=== PATIENT | female | born 1980 ===

== ENCOUNTER 2018-06-23 02:12 | Emergency (ER) | payer MEDICAID ==
[2018-06-23 02:12] VITALS: BMI 22.6
[2018-06-23 02:54] LABS: SQUAMOUS EPITHIAL 2 /hpf (0-5); URINE BACTERIA OCC (<OCC); URINE BILIRUBIN NEGATIVE (NEGATIVE); URINE CLARITY Hazy (Clear); URINE COLOR Straw (YELLOW); URINE GLUCOSE (UA) NORMAL (Normal); URINE LEUKOCYTE ESTERASE 3+ Leu/uL (Negative); URINE PROTEIN 1+ mg/dL (NEGATIVE); URINE UROBILINOGEN NORMAL mg/dL (0.2-1.0); WBC CLUMPS FEW /hpf
[2018-06-23 02:55] LABS: URINE BLOOD NEGATIVE (NEGATIVE)
[2018-06-23 03:58] LABS: BASO % 0.4 % (0.0-2.0); EOS # 0.1 K/uL (0.0-0.7); EOS % 0.7 % (0.0-4.0); HEMOGLOBIN 11.6 g/dL (11.0-16.0); LYMPH # 2.7 K/uL (1.0-4.3); LYMPH % 28.2 % (20.0-40.0); MEAN CELL VOLUME 92.1 fL (81.0-99.0); MEAN CORPUSCULAR HEMOGLOBIN 31.8 pg (27.0-31.0); MEAN CORPUSCULAR HGB CONC 34.6 g/dL (33.0-37.0); MEAN PLATELET VOLUME 8.1 fL (7.2-11.7); MONO # 0.5 K/uL (0.0-0.8); MONO % 5.3 % (0.0-10.0); NEUT # 6.1 K/uL (1.8-7.0); NEUT % 65.4 % (50.0-75.0); NRBC % 0.1 % (0.0-2.0); RBC 3.65 Mil/uL (3.80-5.20); RED CELL DISTRIBUTION WIDTH 13.9 % (11.5-14.5); WHITE BLOOD COUNT 9.4 K/uL (4.8-10.8)
[2018-06-23 04:00] LABS: ALB/GLOB RATIO 1.4 (1.0-2.1); ALBUMIN 4.2 g/dL (3.5-5.0); ALT/SGPT 40 U/L (9-52); AST/SGOT 36 U/L (14-36); BLOOD UREA NITROGEN 10 mg/dL (7-17); CALCIUM 9.3 mg/dl (8.6-10.4); GFR AFRICAN-AMERICAN > 60; GFR NON-AFRICAN AMERICAN > 60; LIPASE 74 U/L (23-300)
[2018-06-23 04:44] VITALS: TEMP 98.2
--- NOTE | 2018-06-23 05:13 | C.PDOC ---
History Of Present Illness 37 year old female presents to the ED c/o crampy right side flank pain radiating into her right groin. Patient has prior history of back pain with multiple visits. Patient denies history of renal colic. Patient denies fever, chills, nausea, vomit, diarrhea, dysuria, hematuria, weakness, numbness. "Normal" diet based on Rice and beans, tortilla, cheese, meat. minimal exercise and PO fluids Time Seen by Provider: 06/23/18 02:31 Chief Complaint (Nursing): Back Pain History Per: Patient History/Exam Limitations: no limitations Onset/Duration Of Symptoms: Days Current Symptoms Are (Timing): Still Present Quality Of Discomfort: "Pain" Previous Symptoms: Back Pain Associated Symptoms: None Recent travel outside of the [place]: No Additional History Per: Patient Past Medical History Reviewed: Historical Data, Nursing Documentation, Vital Signs Vital Signs: Last Vital Signs Temp 98.2 F 06/23/18 04:43 Pulse 62 06/23/18 04:43 Resp 20 06/23/18 04:43 BP 133/88 06/23/18 04:43 Pulse Ox 99 06/23/18 06:31 - Medical History PMH: No Chronic Diseases Denies: Chronic Kidney Disease Surgical History: No Surg Hx Family History: States: Unknown Family Hx - Social History Hx Tobacco Use: No Hx Alcohol Use: Yes Hx Substance Use: No - Immunization History Hx Tetanus Toxoid Vaccination: No Hx Influenza Vaccination: No Hx Pneumococcal Vaccination: No Review Of Systems Constitutional: Negative for: Fever, Chills Cardiovascular: Negative for: Chest Pain, Palpitations Respiratory: Negative for: Cough, Shortness of Breath Gastrointestinal: Positive for: Abdominal Pain. Negative for: Nausea, Vomiting Genitourinary: Negative for: Dysuria, Hematuria Musculoskeletal: Positive for: Back Pain Skin: Negative for: Rash Physical Exam - Physical Exam Appears: Non-toxic, No Acute Distress Skin: Normal Color, Warm, Dry, No Rash Head: Atraumatic, Normacephalic Eye(s): bilateral: Normal Inspection Oral Mucosa: Moist Neck: Normal ROM, Supple Chest: Symmetrical Cardiovascular: Rhythm Regular Respiratory: Normal Breath Sounds, No Rales, No Rhonchi, No Wheezing Gastrointestinal/Abdominal: Soft, Tenderness (vague RLQ), No Guarding, No Rebound, Other (negative [place] and mcBurneys) Back: Paraspinal Tenderness (palpation lumbar) Extremity: Normal ROM, No Tenderness, No Swelling Neurological/Psych: Oriented x3, Normal Speech Gait: Steady ED Course And Treatment - Laboratory Results Result Diagrams: 06/23/18 03:52 06/23/18 03:52 Lab Interpretation: Abnormal (215 WBC, 3WBC in urine) Urine POC: Negative O2 Sat by Pulse Oximetry: 99 (ON RA) Pulse Ox Interpretation: Normal - CT Scan/US CT abd/pelvis Other Rad Studies (CT/US): Read By Radiologist, Radiology Report Reviewed CT/US Interpretation: IMPRESSION: 1. Mild hydronephrosis and hydroureter on the right. Obstructing calculus not visualized. Correlate. Possibly related to a passed calculus. Subtle inflammation. Pyelonephritis not excluded. Correlate. clinically. 2. No acute intra-abdominal process. No inflammatory process. No obstruction. 3. Mild fatty infiltration of the liver. 4. -The appendix is normal. Thank you for allowing us to participate in the care of your patient. Dictated and Authenticated by: Aki Lewis MD. 06/23/2018 6:26 AM Eastern Time ([place] & [place]) Reevaluation Time: 06:30 Reassessment Condition: Improved Medical Decision Making Medical Decision Making: Impression: abdominal pain Plan: * CT abd/pelvis * Labs * Toradol 60 mg IM * Ultram 50 mg PO * Macrobid 100 mg PO * UA 0630: ddx: passed R renal stone vs constipation (large stool R colon) asymptomatic pyuria in younger patient- defer abx treatment for now. no s/s of Pyelonephritis Disposition Doctor Will See Patient In The: Office Counseled Patient/Family Regarding: Studies Performed, Diagnosis - Disposition Referrals: Myesha Johnston [Primary Care Provider] - Disposition: HOME/ ROUTINE Disposition Time: 06:31 Condition: GOOD Additional Instructions: colico Renal: tao jorge agua Ibuprofeno 400-600 mg cada [address] Scan muestra que PUEDE SER que paso' tom phoebe del rinon del lado derecho Estrenemiento: MUCHO en el lado derecho del colon grueso Tao un purgante ahora- tom botella de Citrato de Magnesio- y re-evalua aguiar molestia del abdomen despues de usar el pastor 2-3 veces repita jacob necessario Cambios de dieta y ejercisio tao mas agua. Instructions: Constipation, Adult (DC), Renal Colic Forms: [email or web address] (Serbian) - Clinical Impression Clinical Impression: Flank pain - Scribe Statement The provider has reviewed the documentation as recorded by the Scribe Sukhdeep Schneider All medical record entries made by the Scribe were at my direction and personally dictated by me. I have reviewed the chart and agree that the record accurately reflects my personal performance of the history, physical exam, medical decision making, and the department course for this patient. I have also personally directed, reviewed, and agree with the discharge instructions and disposition.
--- NOTE | 2018-06-23 05:58 | C.PDOC ---
Time Seen by Provider: 06/23/18 02:31 Chief Complaint (Nursing): Back Pain Past Medical History Vital Signs: Last Vital Signs Temp 98.3 F 06/23/18 02:29 Pulse 96 H 06/23/18 02:29 Resp 20 06/23/18 02:29 BP 153/104 H 06/23/18 02:29 Pulse Ox 98 06/23/18 02:29 - Medical History PMH: Denies: Chronic Kidney Disease Family History: States: Unknown Family Hx - Social History Hx Tobacco Use: No Hx Alcohol Use: Yes Hx Substance Use: No - Immunization History Hx Tetanus Toxoid Vaccination: No Hx Influenza Vaccination: No Hx Pneumococcal Vaccination: No ED Course And Treatment - Laboratory Results Result Diagrams: 06/23/18 03:52 06/23/18 03:52 O2 Sat by Pulse Oximetry: 98 Disposition - Disposition Referrals: Myesha Johnston [Primary Care Provider] -
[2018-06-23] MEDS ORDERED: Magnesium Citrate Oral SOL (300 ml) PO ONE (06:34)
[2018-06-23] MEDS ORDERED: Magnesium Citrate Oral SOL (300 ml) ONE (06:48)
[2018-06-23 06:50] VITALS: BP 120/79; PULSE 67; RESP 18; O2SAT 98
--- NOTE | 2018-06-23 10:34 | CT ---
Date of service: 06/23/2018 PROCEDURE: CT Abdomen and Pelvis without intravenous contrast HISTORY: R flank to groin, sudden, ? renal colic COMPARISON: None. TECHNIQUE: Contiguous images were obtained from the domes of the diaphragms to the upper thighs without the administration of intravenous contrast. Oral contrast was not administered. Radiation dose: Total exam DLP = 412.6 mGy-cm. This CT exam was performed using one or more of the following dose reduction techniques: Automated exposure control, adjustment of the mA and/or kV according to patient size, and/or use of iterative reconstruction technique. FINDINGS: LOWER THORAX: Unremarkable. LIVER: Hepatic steatosis. No gross lesion or ductal dilatation. GALLBLADDER AND BILE DUCTS: Unremarkable. PANCREAS: Unremarkable. No gross lesion or ductal dilatation. SPLEEN: Unremarkable. ADRENALS: Unremarkable. No mass. KIDNEYS AND URETERS: Mild distention of the right renal collecting system and ureter. No hydronephrosis. No solid mass. VASCULATURE: Unremarkable. No aortic aneurysm. BOWEL: Unremarkable. No obstruction. No gross mural thickening. APPENDIX: Unremarkable. Normal appendix. PERITONEUM: Unremarkable. No free fluid. No free air. LYMPH NODES: Unremarkable. No enlarged lymph nodes. BLADDER: Unremarkable. REPRODUCTIVE: Unremarkable. BONES: No acute fracture. OTHER FINDINGS: None. IMPRESSION: No evidence of nephrolithiasis. Mild distention of the right renal collecting system and right ureter can be seen in the setting of infection and/or recently passed genitourinary calculus.
== END 2018-06-23 06:51 | disposition home or self-care (01) ==
LOC: C.ER 02:12 → SUPCPDRO 02:12 → C.ER 06:51
DX: R10.9 Unspecified abdominal pain (principal)
CPT/HCPCS: 74176; 80053; 81001; 83690; 84703; 85025; 96372; 99285; J1885

== ENCOUNTER 2018-06-27 18:38 | Emergency (ER) | payer MEDICAID ==
[2018-06-27 18:38] VITALS: BMI 22.6
[2018-06-27 18:53] VITALS: RESP 20
[2018-06-27 21:26] LABS: SQUAMOUS EPITHIAL 4 /hpf (0-5); URINE BACTERIA OCC (<OCC); URINE BILIRUBIN NEGATIVE (NEGATIVE); URINE BLOOD 1+ (NEGATIVE); URINE CLARITY Hazy (Clear); URINE COLOR Yellow (YELLOW); URINE GLUCOSE (UA) NORMAL (Normal); URINE LEUKOCYTE ESTERASE 3+ Leu/uL (Negative); URINE PROTEIN NEGATIVE (NEGATIVE); URINE UROBILINOGEN NORMAL mg/dL (0.2-1.0)
[2018-06-27 21:28] LABS: HCG,QUALITATIVE URINE POSITIVE (NEGATIVE)
[2018-06-27] MEDS ORDERED: Sodium Chloride 0.9% 1,000 ML IV ONE (21:36)
[2018-06-27] MEDS ORDERED: cefTRIAXone IV 1 gm in Dextros 50 ML IVPB ONE (21:37)
[2018-06-27 22:04] LABS: BASO # 0.1 K/uL (0.0-0.2); BASO % 0.6 % (0.0-2.0); EOS # 0.1 K/uL (0.0-0.7); EOS % 0.9 % (0.0-4.0); HEMOGLOBIN 11.5 g/dL (11.0-16.0); LYMPH # 3.8 K/uL (1.0-4.3); LYMPH % 31.9 % (20.0-40.0); MEAN CELL VOLUME 93.3 fL (81.0-99.0); MEAN CORPUSCULAR HEMOGLOBIN 31.1 pg (27.0-31.0); MEAN CORPUSCULAR HGB CONC 33.3 g/dL (33.0-37.0); MEAN PLATELET VOLUME 7.9 fL (7.2-11.7); MONO # 0.6 K/uL (0.0-0.8); NEUT # 7.3 K/uL (1.8-7.0); NEUT % 61.6 % (50.0-75.0); RBC 3.71 Mil/uL (3.80-5.20); RED CELL DISTRIBUTION WIDTH 13.9 % (11.5-14.5); WHITE BLOOD COUNT 11.8 K/uL (4.8-10.8)
[2018-06-27 22:26] LABS: ALB/GLOB RATIO 1.4 (1.0-2.1); ALBUMIN 4.3 g/dL (3.5-5.0); ALT/SGPT 36 U/L (9-52); AST/SGOT 31 U/L (14-36); BLOOD UREA NITROGEN 13 mg/dL (7-17); CALCIUM 9.9 mg/dl (8.6-10.4); GFR AFRICAN-AMERICAN > 60; GFR NON-AFRICAN AMERICAN > 60
--- NOTE | 2018-06-27 22:52 | C.PDOC ---
History Of Present Illness Pt c/o low back pain. She was seen here and had a CT scan that was negative for kidney stones. Time Seen by Provider: 06/27/18 19:53 Chief Complaint (Nursing): Back Pain History Per: Patient Onset/Duration Of Symptoms: Days Current Symptoms Are (Timing): Still Present Quality Of Discomfort: "Pain" Severity: Moderate Associated Symptoms: None Exacerbating Factor(s): Movement Additional History Per: Prior Records Past Medical History Reviewed: Historical Data, Nursing Documentation, Vital Signs Vital Signs: Last Vital Signs Temp 98.4 F 06/27/18 18:51 Pulse 104 H 06/27/18 18:51 Resp 20 06/27/18 18:51 BP 174/103 H 06/27/18 18:51 Pulse Ox 99 06/27/18 18:51 - Medical History PMH: No Chronic Diseases Other Surgeries: Tubal ligation Family History: States: Unknown Family Hx - Social History Hx Tobacco Use: No Hx Alcohol Use: Yes Hx Substance Use: No - Immunization History Hx Tetanus Toxoid Vaccination: No Hx Influenza Vaccination: No Hx Pneumococcal Vaccination: No Review Of Systems Except As Marked, All Systems Reviewed And Found Negative. Constitutional: Negative for: Fever, Chills, Weakness Cardiovascular: Negative for: Chest Pain Respiratory: Negative for: Shortness of Breath Gastrointestinal: Negative for: Vomiting, Abdominal Pain Genitourinary: Negative for: Vaginal Discharge, Vaginal Bleeding, Pelvic Pain Musculoskeletal: Positive for: Back Pain. Negative for: Neck Pain Skin: Negative for: Rash Neurological: Negative for: Weakness, Numbness Physical Exam - Physical Exam Appears: Non-toxic, No Acute Distress Skin: Normal Color, Warm, Dry, No Rash Head: Atraumatic, Normacephalic Eye(s): bilateral: PERRL, EOMI Oral Mucosa: Moist Neck: Normal ROM, Supple Cardiovascular: Rhythm Regular Respiratory: Normal Breath Sounds, No Accessory Muscle Use Gastrointestinal/Abdominal: Soft, No Tenderness Back: No CVA Tenderness, No Vertebral Tenderness Extremity: Normal ROM Neurological/Psych: Oriented x3, Normal Motor, Normal Sensation ED Course And Treatment - Laboratory Results Result Diagrams: 06/27/18 21:54 06/27/18 21:54 Interpretation Of Abnormal: UTI. urine preg came back positive, but beta hcg in serum is negative. O2 Sat by Pulse Oximetry: 99 Pulse Ox Interpretation: Normal Reassessment Condition: Improved Disposition Counseled Patient/Family Regarding: Studies Performed, Diagnosis, Need For Followup, Rx Given - Disposition Referrals: Myesha Johnston [Staff Provider] - Disposition: HOME/ ROUTINE Disposition Time: 22:52 Condition: IMPROVED Additional Instructions: Drink plenty of fluids. Follow up with your doctor this week. Return to the ER if you develop fever, chills, abdominal pain, weakness, numbness, trouble urinating, worsening of symptoms or if you have any other concerns. Prescriptions: Ciprofloxacin [Cipro] 1 tab PO BID #14 tab Naproxen [Naprosyn] 1 tab PO BID PRN #20 tab PRN Reason: Pain Instructions: Urinary Tract Infection, Adult (DC), Low Back Pain in Adults Forms: [facility] (Slovenian) Print Language: LIBYAN - Clinical Impression Clinical Impression: Low back pain, UTI (urinary tract infection)
[2018-06-27 23:44] VITALS: BP 117/67; PULSE 79; TEMP 97.6; O2SAT 100
== END 2018-06-27 23:42 | disposition home or self-care (01) ==
LOC: C.ER 18:38
DX: N39.0 Urinary tract infection, site not specified (principal); M54.5 Low back pain
CPT/HCPCS: 80053; 81001; 84702; 84703; 85025; 87086; 87181; 96372; 99285; J1885

== ENCOUNTER 2018-10-28 00:39 | Emergency (ER) | payer MEDICAID ==
[2018-10-28 00:39] VITALS: BMI 22.6
[2018-10-28] MEDS ORDERED: DiphenhydrAMINE 50 mg/ml Inj ONE (01:01)
[2018-10-28] MEDS ORDERED: DiphenhydrAMINE 50 mg/ml Inj IVP STA (01:06)
[2018-10-28] MEDS ORDERED: MethylPREDNISolone 40 mg Vial IVP STA (01:06)
[2018-10-28] MEDS ORDERED: Albuterol 0.083% Inhal Sol (2.5 mg/3 mL) UD ONE (01:16)
--- NOTE | 2018-10-28 02:00 | C.PDOC ---
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 Patient also c/o throat itching. Patient reports symptoms started after cleaning her kitchen cabinets. Patient reports she might have come into contact with cockroach's egg and dust. 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 Patient denies fever, chills, lip swelling, tongue swelling, new products, new medications. Time Seen by Provider: 10/28/18 01:08 Chief Complaint (Nursing): Allergic Reaction History Per: Patient History/Exam Limitations: no limitations Onset/Duration Of Symptoms: Mins (30) Current Symptoms Are (Timing): Still Present Possible Cause: Other Associated Symptoms: Skin Rash Recent travel outside of the [place]: No Additional History Per: Patient Past Medical History Reviewed: Historical Data, Nursing Documentation, Vital Signs Vital Signs: Last Vital Signs Temp 98.2 F 10/28/18 00:45 Pulse Resp BP 135/92 H 10/28/18 00:45 Pulse Ox - Medical History PMH: No Chronic Diseases Denies: Chronic Kidney Disease Surgical History: No Surg Hx Family History: States: Unknown Family Hx - Social History Hx Tobacco Use: No Hx Alcohol Use: Yes Hx Substance Use: No - Immunization History Hx Tetanus Toxoid Vaccination: No Hx Influenza Vaccination: No Hx Pneumococcal Vaccination: No Review Of Systems Constitutional: Negative for: Fever, Chills ENT: Positive for: Throat Swelling. Negative for: Nose Discharge, Nose Congestion Respiratory: Positive for: Shortness of Breath. Negative for: Cough, Wheezing Gastrointestinal: Negative for: Nausea, Vomiting, Abdominal Pain Skin: Positive for: Rash Neurological: Negative for: Weakness, Numbness, Headache Physical Exam - Physical Exam Appears: Non-toxic, No Acute Distress Skin: Warm, Dry, Rash (diffuse urticarial rash) Head: Atraumatic, Normacephalic Eye(s): bilateral: Normal Inspection Oral Mucosa: Moist Tongue: No Swelling Lips: No Swelling Throat: Normal, No Erythema, No Exudate, No Mass Neck: Normal ROM, Supple Chest: Symmetrical Cardiovascular: Rhythm Regular Respiratory: Normal Breath Sounds, No Rales, No Rhonchi, No Wheezing Gastrointestinal/Abdominal: Soft, No Tenderness Extremity: Normal ROM, No Tenderness, No Swelling Neurological/Psych: Oriented x3, Normal Speech, Normal Cognition Gait: Steady ED Course And Treatment O2 Sat by Pulse Oximetry: 98 (On RA) Pulse Ox Interpretation: Normal Progress Note: Plan: - Benadryl 50 mg IVP. - Pepcid 20 mg IVP. - Solumedrol 125 mg IVP. - Albuterol neb. - Saline neb. Patient is resting comfortably, tolerating PO, has no shortness of breath, has no intra-oral swelling, no stridor. Patient notes that pruritus has improved.. Patient was advised to avoid potential allergens, and to follow up with physician in 1-2 days. Disposition Counseled Patient/Family Regarding: Diagnosis, Need For Followup, Rx Given - Disposition Referrals: Myesha Johnston [Staff Provider] - Disposition: HOME/ ROUTINE Disposition Time: 01:57 Condition: STABLE Additional Instructions: Please follow up with PMD Take medications as directed Return to ER if difficulty breathing, lip or tongue swelling or worse Prescriptions: DiphenhydrAMINE [Benadryl] 50 mg PO Q6H #20 cap Famotidine [Pepcid] 20 mg PO DAILY #14 tab predniSONE [Prednisone] 40 mg PO DAILY #8 tab Instructions: Stefanie (DC) Forms: [employer] (Kyrgyz) Print Language: BENINESE - Clinical Impression Clinical Impression: Allergic urticaria - 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 - Scribe Statement The provider has reviewed the documentation as recorded by the Scribe Sukhdeep Schneider All medical record entries made by the Scribe were at my direction and personally dictated by me. I have reviewed the chart and agree that the record accurately reflects my personal performance of the history, physical exam, medical decision making, and the department course for this patient. I have also personally directed, reviewed, and agree with the discharge instructions and disposition.
[2018-10-28 02:02] VITALS: BP 119/81; PULSE 86; RESP 16; TEMP 98.1; O2SAT 98
== END 2018-10-28 02:05 | disposition home or self-care (01) ==
LOC: C.ER 00:39
DX: L50.0 Allergic urticaria (principal)
CPT/HCPCS: 96374; 96375; 99284; J1200; J2920